=== PATIENT | female | born 1980 | race Caucasian/White ===

== ENCOUNTER 2020-07-09 12:01 | Outpatient (CLI) | payer OTHER | END 2020-07-09 12:02 | disposition home or self-care (01) | LOC: BICULT 12:01 | PROVIDERS: ATTEND Family Medicine | DX: E04.9 Nontoxic goiter, unspecified (principal); E04.1 Nontoxic single thyroid nodule | CPT/HCPCS: 76536 ==

== ENCOUNTER 2022-01-27 07:57 | Outpatient (CLI) | payer OTHER | END 2022-01-27 07:58 | disposition home or self-care (01) | LOC: BICCT 07:57 | PROVIDERS: ATTEND Family Medicine | DX: N20.0 Calculus of kidney (principal); N28.9 Disorder of kidney and ureter, unspecified | CPT/HCPCS: 74176 ==

== ENCOUNTER 2022-05-31 08:43 | Outpatient (CLI) | payer OTHER ==
[2022-05-31] MEDS ORDERED: Iopamidol 370 76% 100 ML VIAL ONE (15:17)
== END 2022-05-31 08:44 | disposition home or self-care (01) ==
LOC: CT 08:43
PROVIDERS: ATTEND Nurse Practitioner Family
DX: N20.0 Calculus of kidney (principal)
CPT/HCPCS: 74178; Q9967